=== PATIENT | female | born 1995 | race Caucasian/White ===

== ENCOUNTER 2023-02-05 12:49 | Inpatient (IN) ==
[2023-02-05] MEDS ORDERED: LIDOCAINE 1% LOCAL 20 ML VIAL INFIL PRN (13:04)
[2023-02-05] MEDS ORDERED: OXYTOCIN 30 UNITS/500 ML BAG IV PRN (13:04)
[2023-02-05] MEDS ORDERED: LACTATED RINGER'S 1,000 ML IV PRN (13:04)
[2023-02-05] MEDS ORDERED: ePHEDrine sulfate 50 MG/ML AMP ONE (13:21)
[2023-02-05] MEDS ORDERED: LIDOCAINE 2%/EPINEPHRINE 1:200,000 20 ML PF ONE (13:22)
[2023-02-05] MEDS ORDERED: fentaNYL citrate PF 100 MCG/2 ML VIAL ONE (13:22)
[2023-02-05] MEDS ORDERED: SODIUM CHLORIDE 0.9% PF INJ 10 ML VIAL ONE (13:22)
[2023-02-05] MEDS ORDERED: BUPIVACAINE 0.25% PF 30 ML VIAL ONE (13:22)
[2023-02-05] MEDS ORDERED: fentaNYL 2MCG/ML ROPIVACAINE 1.25MG/ML 100 ML BAG EPI ONE (13:23)
--- NOTE | 2023-02-05 14:10 | Delivery Summary ---
Vaginal Delivery Summary Date of Service February 05, 2023 Vaginal Delivery Summary and 2nd Degree LAC Combined Admission note / Delivery Note: DIAGNOSES: 1. Cifuentes intrauterine at 40w3d gestation. 2. Spontaneous onset of labor. 3. Group B Streptococcus Neg 4. A1GDM 5. Obesity affecting History: Patient is a 27yo with a complicated by GDM diet controlled, Asthma, Obesity, and who has a scheduled induction of labor coming up in 3 days. She called the on-call MD to c/o worsening intensity of painful contractions, still irregular in spacing but becoming concerning to her. No VB, no LOF, good FM. She was advised to present to L&D. Upon arrival she was found by examining RN to be 7cm dilated with a bulging bag of thomas and a vertex presentation of the fetus, FHT Cat 1, and irregular toco but in evident pain and requesting epidural. I was notified and instructed the nurses to admit the patient and request her epidural, as I was just arriving on hospital grounds. When I reached the patient's room she had an IV in place and was breathing through contractions. We briefly discussed the plan of care and I left the room to wait until she had her epidural for further discussion and re-exam. Almost immediately, I was called and notified that the patient had begun involuntarily pushing, and I returned to the room. She was completely dilated with a bulging amniotic bag. We discussed the option of AROM and beginning second stage, without awaiting epidural, and the patient was agreeable as NCB had been her original goal / plan. She pushed extremely well and delivered her viable female infant shortly thereafter. PROCEDURE: Spontaneous vaginal delivery and repair of second degree laceration. SURGEON: Pippa Toure MD. GRANTS MANAGER: None. ESTIMATED BLOOD LOSS: 300 mL. COMPLICATIONS: None. PLACENTA: Spontaneous and intact with a 3-vessel cord. DISPOSITION: Stable to labor and delivery. DESCRIPTION: The patient pushed well and brought the head to in DOA position. There was 1 loop of nuchal cord, reduced at the perineum, and later discovered to be a second loop of "body" cord that the delivered through. The left shoulder was anterior. The shoulders and body delivered without any difficulty, and the infant was placed on the maternal abdomen. It was vigorous and moving all extremities, and making respiratory efforts. The cord was doubly clamped by the MD and then cut by the FOB. The placenta delivered spontaneously and was noted to be intact and with a 3VC. The cervix, vagina and perineum were examined and were found to have a second degree perineal laceration, and bilateral anterior abrasions. The anterior abrasions responded to pressure and were not sutured given the patient's limited anesthesia; comfort measures for managing these were discussed. The perineum was infiltrated with 1% plain lidocaine 15cc and then sutured with 3-0 vicryl in the usual manner, including a crown stitch to rebuild the perineal body. The fundus was firm and lochia minimal immediately after delivery. [facility] [place] Vaginal Delivery Codes: 73186 global code for the antepartum, delivery, and post- Delivery Type Details: and 2nd Degree LAC
[2023-02-05 14:23] LABS: Hematocrit (blood only) 42.4 % (37.0-47.0); Hemoglobin 14.3 g/dl (12.0-16.0); Mean Corpuscular Hemoglobin 28.9 pg (25.0-34.0); Mean Corpuscular Hgb Conc 33.7 g/dL (32.0-36.0); Mean Corpuscular Volume 85.8 fL (80.0-100.0); Mean Platelet Volume 9.8 fL (9.4-12.4); Platelet Count 222 K/uL (130-400); RDW Coefficient of Variation 13.2 % (11.5-14.5); RDW Standard Deviation 41.4 fL (36.4-46.3); Red Blood Count 4.94 M/uL (4.20-5.40); White Blood Count 12.27 K/ul (4.8-10.8)
[2023-02-05] MEDS ORDERED: oxyCODONE/ACETAMINOPHEN 5mg/325mg TAB PO PRN (14:53)
[2023-02-05] MEDS ORDERED: ALBUTEROL HFA 8 GM INHALER INH PRN (14:53)
[2023-02-05] MEDS ORDERED: DIPHTHERIA/TETANUS/PERTUSSIS Vaccine (Tdap, Age 7+yrs) 0.5mL SYR/VL IM ONE (14:53)
[2023-02-05] MEDS ORDERED: ACETAMINOPHEN 325 MG TAB PO PRN (14:53)
[2023-02-05] MEDS ORDERED: BENZOCAINE 20% AER SPR 82.5 GM CAN EXT PRN (14:53)
[2023-02-05] MEDS ORDERED: HYDROCORTISONE ACETATE 25 MG SUPP PR PRN (14:53)
[2023-02-05] MEDS: IBUPROFEN 600 MG TAB PO PRN ×2 (17:23→20:47)
[2023-02-05] MEDS: DOCUSATE SODIUM 100 MG CAP PO SCH (20:47)
[2023-02-06] MEDS: IBUPROFEN 600 MG TAB PO PRN ×5 (06:36→23:49)
[2023-02-06 06:38] LABS: Hematocrit (blood only) 35.9 % (37.0-47.0); Hemoglobin 12.2 g/dl (12.0-16.0); Mean Corpuscular Hemoglobin 28.8 pg (25.0-34.0); Mean Corpuscular Volume 84.7 fL (80.0-100.0); Mean Platelet Volume 9.7 fL (9.4-12.4); Platelet Count 219 K/uL (130-400); RDW Coefficient of Variation 13.3 % (11.5-14.5); RDW Standard Deviation 40.8 fL (36.4-46.3); Red Blood Count 4.24 M/uL (4.20-5.40); White Blood Count 12.65 K/ul (4.8-10.8)
[2023-02-06] MEDS: PRENATAL VITAMIN 1 TAB PO SCH (08:13)
[2023-02-06] MEDS: DOCUSATE SODIUM 100 MG CAP PO SCH ×2 (08:13→19:31)
[2023-02-06] MEDS: FLUTICASONE FUROATE 100MCG 14 PUFFS/INHALER INH SCH (08:26)
--- NOTE | 2023-02-06 08:43 | Obstetrical Progress Note ---
Date of Service February 06, 2023 Assessment & Plan (1) Normal vaginal delivery: Recovering well from vaginal delivery, would like to stay and meet with mergers and acquisitions consultant in the morning. Subjective Ambulation: ambulating normally Voiding: no voiding problems Passing Gas:: Yes Diet Tolerance:: regular diet Lochia:: Small Feeding Type:: breast feeding Physical Exam Constitutional WD/WN, vitals as above Eyes PERRL, conjunctivae normal, anicteric sclerae Neck normal visual inspection Respiratory normal respiratory effort and able to speak in complete sentences; no respiratory distress and no labored breathing Cardiovascular Rate/Rhythm: regular rate and regular rhythm Extremities: no edema Chest (Breasts) Chest: normal inspection of chest Gastrointestinal (Abdomen) Inspection/Auscultation: abdomen normal to inspection Soft, postgravid Psychiatric A+Ox3, euthymic affect Genitourinary OB Exam Abdomen: + fundal height Fundus: + firm and + relation to umbilicus (fundus just below umbilicus); not tender Results & Data Vital Signs (Past 12 Hours) Vital Signs Temp Pulse Resp BP 02/06/23 04:45 97.9 F 65 18 113/75 02/06/23 00:44 98.1 F 73 18 118/79 02/05/23 20:49 98.1 F 76 18 110/66
[2023-02-06] MEDS: CETIRIZINE HCL 10 MG TABLET PO SCH (12:39)
--- NOTE | 2023-02-07 06:07 | Obstetrical Progress Note ---
Date of Service <Adeola PlascenciaSumi Lama DO - Last Filed: 02/07/23 06:18> February 07, 2023 Assessment & Plan <Adeola PlascenciaSumi Lama DO - Last Filed: 02/07/23 06:18> (1) care following vaginal delivery: Patient is PPD 2 s/p and doing well. - Eating well, voiding well, ambulating well - Vitals reviewed; BP up to 140-150s/80-90s (mostly on day of delivery), otherwise WNL - Pain well controlled with analgesics - OOB, ambulation, diet progression as tolerated - Blood type: O+, GBS neg, rubella immune - Plan to discharge today after visit from managed services consultant - After discharge, 6 week follow up with Dr. Toure <Pippa Toure MD - Last Filed: 02/07/23 09:46> (1) care following vaginal delivery: Plan Resident Physician Supervision Note: I interviewed and examined the patient. Discussed with Dr. Lama and agree with findings and plan as documented in the note. Any exceptions or clarifications are listed here: [ ] Documented By: Pippa Toure MD, FACOG Subjective <Adeola Auguste DO [place] - Last Filed: 02/07/23 06:18> Patient is a 27 yo female who is now PPD #2 following spontaneous vaginal delivery at 40 3/7 weeks. Reports feeling well this morning. She endorses abdominal adn vaginal pain/soreness well managed on analgesics. Voiding without issue. Tolerating regular meals overnight and able to ambulate some. She has passed gas. Persistent lochia with some improvement this morning. Currently breast feeding. Review of Systems Denies fever, chills, sweats. Denies SOB, difficulty breathing, chest pain, palpitations, and chest pressure. Denies breast pain. Denies dysuria. Denies headache or changes in vision. Physical Exam <Adeola Lama DO - Last Filed: 02/07/23 06:18> General: Alert and oriented. No acute distress. CV: Regular rate and rhythm. No murmurs. Respiratory: CTA bilaterally. No rhonchi, wheezes, or crackles. No increased w ork of breathing. Abdomen: Positive bowel sounds. Soft, nontender, non distended. Uterus: Fundus firm and palpable 2 cm below the umbilicus. Lower extremities: Trace bilateral LE edema. No deep calf pain. Results & Data <Adeola Lama DO - Last Filed: 02/07/23 06:18> Vital Signs (Past 12 Hours) Vital Signs Temp Pulse Resp BP Pulse Ox O2 Del Method 02/07/23 00:00 36.3 C L 63 16 118/80 96 Room Air 02/06/23 19:30 36.3 C L 71 16 144/86 H 96 Room Air Resident Activity Tracking <Adeola Lama DO - Last Filed: 02/07/23 06:18> Resident Involvement: Resident Care Provided Care Provided: OB Delivery
[2023-02-07 06:21] LABS: Hematocrit (blood only) 36.3 % (37.0-47.0); Hemoglobin 11.8 g/dl (12.0-16.0)
[2023-02-07] MEDS: CETIRIZINE HCL 10 MG TABLET PO SCH (08:21)
[2023-02-07] MEDS: PRENATAL VITAMIN 1 TAB PO SCH (08:21)
[2023-02-07] MEDS: DOCUSATE SODIUM 100 MG CAP PO SCH (08:21)
[2023-02-07] MEDS: IBUPROFEN 600 MG TAB PO PRN (08:21)
[2023-02-07] MEDS: FLUTICASONE FUROATE 100MCG 14 PUFFS/INHALER INH SCH (08:22)
== END 2023-02-07 11:40 | disposition home or self-care (01) | DRG 807 ==
LOC: OPB 12:49 → 4S1 12:51 → 4E2 16:46